=== PATIENT | female | born 1945 | race Hispanic/Latino ===

== ENCOUNTER 2020-03-21 19:07 | Emergency (ER) | payer MEDICARE ==
[~2020-03-21] VITALS: Ht 147.3 cm; Wt 56.7 kg
--- NOTE | 2020-03-21 19:40 | Emergency Department Note ---
History of Present Illnes History of Present Illness Chief Complaint: co rectal pain for 1 week History of Present Illness This is a 75 year old female . 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 Any updates have been documented here. Past Medical History Past Medical History: Hypertension, Diabetes Other Medical History: psoriatic arthritis Past Surgical History: Cholecysctectomy Other Surgery: pt has never had a colonoscopy Social History Smoking Cessation: Never Smoker Alcohol Use: None Any Illegal Drug Use: No TB Exposure/Symptoms: No Physically hurt or threatened: No Other Any Pre-Existing Lines (PICC,: No Review of Systems Review of Systems Constitutional: Reports no symptoms EENTM: Reports no symptoms Cardiovascular: Reports no symptoms Respiratory: Reports no symptoms Gastrointestinal: Reports no symptoms; Denies abdominal pain, Denies constipation, Denies diarrhea, Denies nausea, Denies vomiting Genitourinary: Reports no symptoms Musculoskeletal: Reports no symptoms Integumentary: Reports no symptoms Neurological: Reports no symptoms Psychological: Reports no symptoms Endocrine: Reports no symptoms Hematological/Lymphatic: Reports no symptoms Review of other systems: All other systems negative (pt denies any vaginal pain, discharge or bleeding) Physical Exam Related Data Vital signs reviewed: Yes Physical Exam CONSTITUTIONAL Constitutional: Present well-developed, Present well-nourished HENT HENT: Present normocephalic, Present atraumatic EYES NECK Neck: Present ROM normal, Present supple PULMONARY Pulmonary: Present effort normal, Present breath sounds normal CARDIOVASCULAR Cardiovascular: Present regular rhythm, Present heart sounds normal, Present intact distal pulses, Present capillary refill normal, Present normal rate GASTROINTESTINAL Abdominal: Present soft, Present nontender, Present bowel sounds normal GENITOURINARY Genitourinary: Present guaiac result (negative), Present other (rectal no external masses mild erythema non tender questionable polyp seen on visual inspection. no palpable massesand rectal exam non tender) SKIN Skin: Present warm, Present dry, Present other (few lesons abdominal wall soriatic like no sign of infection) MUSCULOSKELETAL Musculoskeletal: Present ROM normal NEUROLOGICAL Neurological: Present alert, Present oriented x 3, Present DTRs normal, Present no gross motor or sensory deficits PSYCHOLOGICAL Psychological: Present mood/affect normal, Present behavior normal, Present thought content normal, Present judgement normal Assessment & Plan Medical Decision Making MDM no clear reason for the rectal pain on physical exam, no alarming red flags such as fever bleeding weight loss or loss of appetite Assessment & Plan Final Impression: (1) Rectal pain LAUREANO SMITH MD Mar 21, 2020 19:40
== END 2020-03-21 19:45 | disposition home or self-care (01) ==
LOC: FSED 19:19
DX: K62.89 Other specified diseases of anus and rectum (principal); I10 Essential (primary) hypertension; E11.9 Type 2 diabetes mellitus without complications; L40.50 Arthropathic psoriasis, unspecified
CPT/HCPCS: 99282

== ENCOUNTER 2020-06-11 16:40 | Emergency (ER) | payer MEDICARE ==
[~2020-06-11] VITALS: Ht 147.3 cm; Wt 56.7 kg
[2020-06-11] MEDS ORDERED: SODIUM CHLORIDE 0.9% 1000ML 1,000 ML IV STA (16:45)
--- NOTE | 2020-06-11 16:45 | Emergency Department Note ---
History of Present Illnes History of Present Illness History of Present Illness This is a 75 year old female sent by Dr Jean's office for evaluation of hyperglycemia . 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 Onset (how long ago): day(s) Severity: mild Onset quality: gradual Duration (how long): day(s) Timing of current episode: constant Progression: unchanged Chronicity: new Context: Denies recent illness, Denies recent surgery, Denies recent immobilization, Denies recent travel, Denies trauma/injury, Denies new medications, Denies hx of DVT/PE, Denies non-compliance w/ medications, Denies other Relieving factors: none Exacerbating factors: none Associated symptoms: Denies denies other symptoms, Denies confusion, Denies chest pain, Denies cough, Denies diaphoresis, Denies fever/chills, Denies headaches, Denies loss of appetite, Denies malaise, Denies nausea/vomiting, Denies rash, Denies seizure, Denies shortness of breath, Denies syncope, Denies weakness, Denies other (FAN PIMENTEL DO) Past Medical/Family History Physician Review I have reviewed the patient's past medical and family history. Any updates have been documented here. (FAN PIMENTEL DO) Past Medical History Recent Fever: No Clinical Suspicion of Infectio: No New/Unexplained Change in Ment: No Past Medical History: Hypertension, Diabetes Other Medical History: psoriatic arthritis Past Surgical History: Cholecysctectomy Other Surgery: pt has never had a colonoscopy (FAN PIMENTEL DO) Social History Smoking Cessation: Never Smoker Alcohol Use: None Any Illegal Drug Use: No (FAN PIMENTEL DO) Review of Systems Review of Systems Constitutional: Reports no symptoms EENTM: Reports no symptoms Cardiovascular: Reports no symptoms Respiratory: Reports no symptoms Gastrointestinal: Reports no symptoms Genitourinary: Reports no symptoms Musculoskeletal: Reports no symptoms Integumentary: Reports no symptoms Neurological: Reports no symptoms Psychological: Reports no symptoms Endocrine: Reports no symptoms Hematological/Lymphatic: Reports no symptoms (FAN PIMENTEL DO) Physical Exam Related Data Allergies: Coded Allergies: No Known Allergies (Unverified , 03/21/20) Triage Vital Signs Vital Signs Date Time Temp Pulse Resp B/P (MAP) Pulse Ox O2 Delivery O2 Flow Rate FiO2 06/11/20 16:55 Room Air 06/11/20 17:51 81 25 100 06/11/20 17:59 97.9 Vital signs reviewed: Yes (FAN PIMENTEL DO) Physical Exam CONSTITUTIONAL Constitutional: Present well-developed, Present well-nourished HENT HENT: Present normocephalic, Present atraumatic, Present oropharynx pilar r/moist, Present nose normal HENT L/R: Present left ext ear normal, Present right ext ear normal EYES Eyes: Reports PERRL, Reports conjunctivae normal NECK Neck: Present ROM normal PULMONARY Pulmonary: Present effort normal, Present breath sounds normal CARDIOVASCULAR Cardiovascular: Present regular rhythm, Present heart sounds normal, Present capillary refill normal, Present normal rate GASTROINTESTINAL Abdominal: Present soft, Present nontender, Present bowel sounds normal GENITOURINARY Genitourinary: Present exam deferred SKIN Skin: Present warm, Present dry MUSCULOSKELETAL Musculoskeletal: Present ROM normal NEUROLOGICAL Neurological: Present alert, Present oriented x 3, Present no gross motor or sensory deficits PSYCHOLOGICAL Psychological: Present mood/affect normal, Present judgement normal ( FAN PIMENTEL DO) Assessment & Plan Medical Decision Making MDM Diff Dx : hyperglycemia, DKA, HHS (FAN PIMENTEL DO) Assessment & Plan Final Impression: (1) Hyperglycemia (FAN PIMENTEL DO) Depart Disposition: HOME, SELF-CARE FAN PIMENTEL DO Jun 11, 2020 16:45 TIFFANIE BALDWIN MD Jun 11, 2020 22:49
[2020-06-11 17:29] LABS: BASOPHILS % 0.5 % (0.0-1.0); EOSINOPHILS % 0.5 % (0.0-6.0); HEMATOCRIT 43.1 % (34.2-44.1); HEMOGLOBIN 14.1 g/dL (12.0-16.0); LYMPHOCYTES # (AUTO) 1.6 (1.0-3.2); LYMPHOCYTES % 21.6 % (18.0-39.1); MEAN CORPUSCULAR HEMOGLOBIN 27.4 pg (28-32); MEAN CORPUSCULAR HGB CONC 32.7 g/dL (31-35); MEAN CORPUSCULAR VOLUME 83.7 fL (81-99); MONOCYTES # (AUTO) 0.3 (0.2-0.8); MONOCYTES % 3.4 % (4.4-11.3); NEUTROPHILS # (AUTO) 5.6 (2.1-6.9); NEUTROPHILS % 73.6 % (38.7-80.0); PLATELET COUNT 220 x10e3/uL (140-360); RED BLOOD COUNT 5.15 x10e6/uL (3.6-5.1); RED CELL DISTRIBUTION WIDTH 13.4 % (11.7-14.4)
[2020-06-11 18:53] LABS: ALBUMIN 3.6 g/dL (3.5-5.0); ALBUMIN/GLOBULIN RATIO 0.9 (0.8-2.0); ANION GAP 21.7 mmol/L (8-16); CALCIUM 9.2 mg/dL (8.4-10.2); CREATININE, SERUM 1.65 mg/dL (0.57-1.11); POTASSIUM 4.7 mmol/L (3.5-5.1)
[2020-06-11] MEDS ORDERED: INSULIN REGULAR, HUMAN 100 UNIT/1 ML 3ML VIAL SQ ONE (19:15)
[2020-06-11 22:04] LABS: ANION GAP 15.7 mmol/L (8-16); CALCIUM 8.2 mg/dL (8.4-10.2); CREATININE, SERUM 1.15 mg/dL (0.57-1.11); POTASSIUM 3.7 mmol/L (3.5-5.1)
[2020-06-11 23:49] VITALS: BP 140/70
== END 2020-06-12 04:45 | disposition home or self-care (01) ==
LOC: ER 17:54
DX: E11.65 Type 2 diabetes mellitus with hyperglycemia (principal); I10 Essential (primary) hypertension; L40.50 Arthropathic psoriasis, unspecified
CPT/HCPCS: 36415; 80048; 80053; 82948; 85025; 99284; J1817; J7030